=== PATIENT | female | born 1985 | race Caucasian/White ===

== ENCOUNTER → 2022-01-29 12:24 | Outpatient (CLI) | payer OTHER, SELFPAY ==
--- NOTE | ~2022-01-29 | MR_ITS ---
EXAMINATION: MR brain/brain stem wo/w con DATE: 01/29/2022 13:06 INDICATION: Frequent headache. TECHNIQUE: Magnetic resonance imaging (MRI) of the brain and brainstem was performed without and with 15 mL MultiHance intravenous contrast. Sequences included sagittal and axial T1-weighted FSE, axial diffusion-weighted FS EPI, axial T2*-weighted GRE, axial T2-weighted FLAIR Propeller, and axial T2-we ighted Propeller. Postcontrast sequences included axial and coronal T1-weighted FSE. Apparent diffusi on coefficient (ADC) maps were created. COMPARISON: Head CT 05/18/2010 FINDINGS: There is no intracranial hemorrhage, acute infarction, or abnormal intracranial mass lesion . The ventricles are normal in size. The paranasal sinuses are clear. The orbits are normal. The mast oid air cells are normal. IMPRESSION: 1. Normal brain. Reviewed, dictated and finalized at location A. IMPRESSION: 1. Normal brain.
[2022-01-29 12:49] LABS: Estimated Glomerular Filt Rate > 60
== END ==
PROVIDERS: PCP Physician Assistant; Visit Provider Physician Assistant
DX: R51.9 Headache, unspecified (principal)
CPT/HCPCS: 70553; A9577

== ENCOUNTER 2023-07-11 13:08 | Emergency (ER) | payer OTHER, SELFPAY ==
--- NOTE | ~2023-07-11 | US_ITS ---
EXAMINATION: US venous doppler LE RT DATE: 07/11/2023 15:21 INDICATION: Right lower extremity pain TECHNIQUE: Ashley scale images without and with compression and Doppler images of the right lower extre mity veins were obtained. COMPARISON: 05/24/2017 FINDINGS: The right common femoral vein, profunda femoral vein, femoral vein, popliteal vein, peronea l trunk, posterior tibial veins, and greater saphenous vein are patent. IMPRESSION: 1. Patent right lower extremity veins. No evidence of deep venous thrombosis. Reviewed, dictated and finalized at location F.
[2023-07-11 13:30] VITALS: BP 105/78; PULSE 92; RESP 16; TEMP 36.8; O2SAT 100
--- NOTE | 2023-07-11 14:42 | ED_ITS ---
HPI - Extremity Injury (Lower) General Chief Complaint: Extremity Injury, Lower Stated Complaint: vericose vein pain Time Seen by Provider: 07/11/23 14:35 History of Present Illness HPI Narrative: Patient is a 37-year-old female who presents ER for evaluation to rule out DVT. She has had some pain behind her right knee and down her calf towards her foot. She has seen a distended varicose vein. No known injury. No long distance travel. No recent surgery. She is not on any estrogens. She was talking to some friends who are nurses and felt she should be ruled out for DVT before she flies to [employer]. Related Data Allergies Allergy/AdvReac Type Severity Reaction Status Date / Time No Known Allergies Allergy Verified 07/11/23 14:34 Review of Systems Cardiovascular: Cardiovascular: Denies chest pain and Denies rapid heart rate Respiratory: Respiratory: Denies cough and Denies dyspnea Musculoskeletal: Musculoskeletal: Denies arthralgias and Denies joint swelling Comments: Right calf pain PMFSH Past Medical History Medical History (Updated 07/11/23 @ 21:17 by Barrera Salvador MD) Healthy female adult Surgical History Surgical History (Updated 07/11/23 @ 21:17 by Barrera Salvador MD) No pertinent past surgical history Exam Narrative: GENERAL: Well-appearing, well-nourished, and in no acute distress. HEAD: Normocephalic, atraumatic. ENT: Mucous membranes moist. CHEST: Clear to auscultation. No respiratory distress. HEART: Regular rate and rhythm. Normal peripheral pulses. EXTREMITIES: Normal range of motion. No edema. No palpable cord. SKIN: Warm, dry, no rash. NEURO: Alert and oriented x3. PSYCH: Normal mood and affect. Course Course Emergency Course: Patient resting comfortably. Informed of results. Discharge home. Vital Signs Vital signs: Vital Signs Temperature 98.3 F 07/11/23 13:30 Pulse Rate 92 07/11/23 13:30 Respiratory Rate 16 07/11/23 13:30 Blood Pressure 105/78 07/11/23 13:30 Pulse Oximetry 100 07/11/23 13:30 Temperature 98.3 F 07/11/23 13:30 Pulse Rate 92 07/11/23 13:30 Respiratory Rate 16 07/11/23 13:30 Blood Pressure 105/78 09/14/23 13:30 Pulse Oximetry 100 07/11/23 13:30 MDM - Extremity Injury (Lower) Imaging Data Radiologist's impression: ITS Impressions Venous Doppler Study 07/11/23 15:23 IMPRESSION: 1. Patent right lower extremity veins. No evidence of deep venous thrombosis. Discharge Plan Discharge Clinical Impression: Calf pain Patient Disposition: Home, Self-Care Condition: Stable Instructions: Leg Cramps (ED) Additional Instructions: Return the ER if you have chest pain or shortness of breath, you cannot keep down food or water, you lose consciousness, you have additional concerns. Follow-up/Referrals: Naun,DORYS Pastrana [Primary Care Provider] - 1 Week
== END 2023-07-11 17:28 | disposition home or self-care (01) ==
PROVIDERS: Emergency Provider Emergency Medicine; PCP Physician Assistant
DX: M79.661 Pain in right lower leg (principal)
CPT/HCPCS: 93971; 99284

== ENCOUNTER 2023-12-18 20:47 | Emergency (ER) | payer OTHER, SELFPAY ==
[2023-12-18 20:56] VITALS: BP 115/66; PULSE 76; RESP 20; TEMP 36.2; O2SAT 100
[2023-12-18 23:02] VITALS: BP 108/67; PULSE 88; RESP 12; O2SAT 100
[2023-12-18 23:24] LABS: Basophils Absolute Auto 0.1 K/mm3 (0.0-0.1); Basophils Percent Auto 0.4 % (0.2-1.2); Eosinophils Absolute Auto 0.2 K/mm3 (0-0.3); Eosinophils Percent Auto 1.4 % (0-4.4); Hematocrit 39.1 % (37.0-47.0); Hemoglobin 12.4 g/dL (12.0-15.0); Immature Granulocyte Absolute 0.04 K/mm3 (0.00-0.031); Immature Granulocyte Percent A 0.3 % (0-0.5); Lymphocytes Absolute Auto 3.17 K/mm3 (0.9-3.2); Lymphocytes Percent Auto 27.7 % (18.3-44.2); Mean Corpuscular HGB Conc 31.7 g/dl (32-36); Mean Corpuscular Hemoglobin 27.1 pg (26-34); Mean Corpuscular Volume 85.6 fl (80-100); Mean Platelet Volume 9.4 fl (7.4-10.4); Monocytes Absolute Auto 0.8 K/mm3 (0.1-0.6); Monocytes Percent Auto 6.9 % (2.6-8.5); Neutrophils Absolute Auto 7.3 K/mm3 (1.3-6.7); Neutrophils Percent Auto 63.3 % (45.5-73.1); Platelet Count Result 204 k/mm3 (150-375); Red Blood Count 4.57 M/mm3 (4.2-5.4); Red Cell Distribution Width 14.8 % (11.5-14.5); White Blood Count 11.5 K/mm3 (4.5-10.0)
[2023-12-18 23:30] LABS: Appearance Urine Clear (Clear); Bacteria Urine None Seen /hpf; Bilirubin Urine Negative (Negative); Blood Urine 3+ (Negative); Color Urine Yellow (Yellow); Glucose Urine UA Negative (Negative); Ketones Urine Negative (Negative); Leukocyte Esterase Ur Negative LEU/UL (Negative); Nitrate Urine Negative (Negative); Non Pathogenic Casts 0-2; Protein Urine Negative (Negative); RBC Urine >100 /hpf (0-2); Specific Grav Ur 1.012 (1.001-1.035); Squamous Epithelial Cell Urine None seen /hpf (Few); Urobilinogen Urine 0.2 mg/dL (<2.0); WBC Urine 0-5 /hpf
[2023-12-18 23:32] LABS: Add Urine Microscopic? YES
--- NOTE | 2023-12-18 23:39 | ED.FEMALEGU ---
HPI - Female Genitourinary General Chief complaint: Vaginal Bleeding Stated complaint: heavy period bleeding Time Seen by Provider: 12/18/23 21:18 Source: patient Mode of arrival: ambulatory Limitations: no limitations History of Present Illness HPI Narrative: Patient is a 38-year-old female who presents the ED with report of vaginal bleeding. Patient reports she is currently on her menstrual cycle, cycle began on Saturday. States today, bleeding has been much heavier than usual. She wears a menstrual cup. She states since around noon today, she has been changing her menstrual cup every hour or so. States she has been over feeling onto a pad. Denies significant dizziness or lightheadedness. Denies significant abdominal pain or cramping. Denies nausea, vomiting, fevers. Patient sees Dr. Mcginnis. She contacted office prior to arrival and was referred to ED for further evaluation. Related Data Allergies Allergy/AdvReac Type Severity Reaction Status Date / Time No Known Allergies Allergy Verified 07/11/23 14:34 Review of Systems Review of Systems: CONSTITUTIONAL: Denies fever, chills, or sweats. GASTROINTESTINAL: Denies abdominal pain, nausea, vomiting, or diarrhea. GENITOURINARY: See HPI. NEUROLOGIC: Denies headache, dizziness, numbness, or weakness. All systems reviewed & are unremarkable except as noted in HPI and below PMFSH Past Medical History Medical History Healthy female adult Surgical History Surgical History No pertinent past surgical history Exam Narrative: GENERAL: Well appearing, well-nourished, non-toxic, in no acute distress. HEAD: Normocephalic, atraumatic. RESPIRATORY: Airway patent, respirations nonlabored. Clear to auscultation bilaterally, no rales, rhonchi, wheezing. CARDIOVASCULAR: Regular rate and rhythm ABDOMINAL: Soft, no tenderness throughout abdomen, nondistended. Normoactive BS. PELVIC: Normal external genitalia. Mild amount of dark red bleeding in vaginal vault, easily cleared with long Q-tips. No evidence of hemorrhage or pooling of fluid. Cervix appears unremarkable. No significant CMT. No significant clots noted. MUSCULOSKELETAL: Moves all extremities. No gross deformities. SKIN: Warm, dry, normal color. NEURO: A&O X3. Speech clear. Cranial nerves II-XII grossly intact. Steady gait. No ataxic movements. PSYCHIATRIC: Appropriate mood and affect. Normal interaction. Course Vital Signs Vital signs: Vital Signs Temperature 97.2 F L 12/18/23 20:56 Pulse Rate 76 12/18/23 20:56 Respiratory Rate 20 12/18/23 20:56 Blood Pressure 115/66 12/18/23 20:56 Pulse Oximetry 100 12/18/23 20:56 Oxygen Delivery Room Air 12/18/23 20:56 Temperature 98.3 F 12/19/23 00:43 Pulse Rate 80 12/19/23 00:43 Respiratory Rate 16 12/19/23 00:43 Blood Pressure 110/76 12/19/23 00:43 Pulse Oximetry 99 12/19/23 00:43 Oxygen Delivery Room Air 12/18/23 20:56 MDM - Female Genitourinary MDM Narrative Medical decision making narrative: Patient present ED with abnormal vaginal bleeding, currently on menstrual cycle, bleeding controlled. Vitals are stable upon arrival. Patient in no acute distress. No evidence of hemodynamic instability. Denying dizziness or lightheadedness. CBC with stable H&H, hemoglobin 12.4. No records to compare to. CBC does show mild leukocytosis of 11.5. Patient denying any recent infectious symptoms. Urinalysis with evidence of blood, no signs of infection. Pelvic exam was reassuring, no evidence of hemorrhage. Patient will be discharged at this time, recommended close follow-up with OBGYN for further evaluation management. Discussed that she can try scheduled ibuprofen to assist with bleeding. Given strict return precautions. She agrees with plan and feels comfortable with discharge home. Discharged in stabl
[2023-12-19 00:43] VITALS: BP 110/76; PULSE 80; RESP 16; TEMP 36.8; O2SAT 99
== END 2023-12-19 00:45 | disposition home or self-care (01) ==
PROVIDERS: Emergency Provider Physician Assistant; PCP Physician Assistant
DX: N93.8 Other specified abnormal uterine and vaginal bleeding (principal)
CPT/HCPCS: 36415; 81001; 85025; 99284

== ENCOUNTER → 2023-12-26 10:25 | Outpatient (CLI) | payer OTHER, SELFPAY ==
--- NOTE | ~2023-12-26 | US_ITS ---
Pelvic ultrasound. Clinical History: Excessive and frequent menstruation Technique: Realtime transabdominal and transvaginal scanning of the pelvis was performed. Color flow Doppler and Doppler spectral analysis were performed. Findings: The uterus is anteverted. The endometrial stripe has a thickness of 7 mm. No focal mass is identified. Small amount of fluid present in the endometrial cavity. The right ovary measures 3.0 x 2.7 x 3.4 cm. No significant right ovarian or adnexal mass is seen. The left ovary measures 2.7 x 3.2 x 2.2 cm. No significant left ovarian or adnexal mass is seen. There is no evidence of free fluid in the cul de sac. Impression: No significant abnormality seen. Reviewed, dictated and finalized at [facility]. [employer] MANAGER Impression: No significant abnormality seen.
== END ==
PROVIDERS: PCP Nurse Practitioner; Visit Provider Nurse Practitioner
DX: N92.0 Excessive and frequent menstruation with regular cycle (principal)
CPT/HCPCS: 76856

== ENCOUNTER 2025-07-12 08:51 | Outpatient (CLI) | payer OTHER, SELFPAY ==
--- NOTE | ~2025-07-12 | MMUS_ITS ---
EXAMINATION: US breast RT limited, MM diagnostic kain BI w yumiko HISTORY: Right nipple itching for 6 months. TECHNIQUE: [Additional images of the [[right breast]] were performed using full field digital mammography. 3-D tomosynthesis were also obtained and synthetic 2- D images were generated. CAD analysis was submitted and interpreted. High resolution [right breast ultrasound was performed.] ] COMPARISON: None available BREAST PARENCHYMAL COMPOSITION: There are scattered areas of fibroglandular density. FINDINGS: MAMMOGRAPHIC FINDINGS: No suspicious calcifications, masses or architectural distortion in either breast. ULTRASOUND: No cystic or solid mass identified in the area of concern in the right retroareolar region. IMPRESSION/RECOMMENDATION: No specific sonographic or mammographic correlate is identified for the reported area of concern. A screening mammogram at age 40 is recommended. Further evaluation at this time should be based on clinical assessment. Continued follow-up physical examination is recommended.] BI-RADS 2: Benign Reviewed, dictated and finalized at location Q. IMPRESSION/RECOMMENDATION: No specific sonographic or mammographic correlate is identified for the reporte d area of concern. A screening mammogram at age 40 is recommended. Further eval uation at this time should be based on clinical assessment. Continued follow-up physical examination is recommended.] BI-RADS 2: Benign IMPRESSION/RECOMMENDATION: No specific sonographic or mammographic correlate is identified for the reporte d area of concern. A screening mammogram at age 40 is recommended. Further eval uation at this time should be based on clinical assessment. Continued follow-up physical examination is recommended.] BI-RADS 2: Benign
== END 2025-07-12 08:52 | disposition home or self-care (01) ==
LOC: MICIMG 08:52
PROVIDERS: PCP Nurse Practitioner; Visit Provider Nurse Practitioner
DX: N64.59 Other signs and symptoms in breast (principal)
CPT/HCPCS: 76642; 77062; 77066; G0279